=== PATIENT | female | born 1955 | race Caucasian/White ===

== ENCOUNTER 2019-02-14 14:54 | Observation (INO) ==
[2019-02-14] MEDS ORDERED: Aspirin 81 MG TAB.CHEW PO ONE (15:04)
[2019-02-14] MEDS ORDERED: Nitroglycerin 0.4 MG TAB.SUBL SL PRN ×2 (15:04→16:10)
[2019-02-14 15:20] LABS: Basophils % 0.4 %; Eosinophils # 0.2 K/mcL (0.0-0.6); Eosinophils % 2.3 %; Hematocrit 43.1 % (35.3-44.9); Hemoglobin 15.1 g/dL (11.5-15.4); Immature Granulocytes % 0.3 % (0-4); Lymphocytes # 2.3 K/mcL (0.6-4.6); Lymphocytes % 23.3 %; Mean Corpuscular Hemoglobin 33.9 pg (28.0-33.3); Mean Corpuscular Volume 96.9 fL (83.0-100.0); Mean Platelet Volume 10.5 fL (9.4-12.4); Monocytes # 0.7 K/mcL (0.0-1.3); Monocytes % 6.9 %; Neutrophils # 6.6 K/mcL (1.6-8.9); Platelet Count 278 K/mcL (140-400); Red Blood Count 4.45 M/mcL (3.82-4.97); Segmented Neutrophils % 66.8 %; White Blood Count 9.9 K/mcL (4.3-11.1)
[2019-02-14 15:24] LABS: Prothrombin Time 11.4 Seconds (9.4-12.1)
[2019-02-14 15:27] LABS: Activated Partial Thrombo Time 34.2 Seconds (26.0-36.0)
[2019-02-14] MEDS ORDERED: Ondansetron 4 MG/2 ML VIAL IVP ONE (15:43)
[2019-02-14 15:44] LABS: BUN/Creatinine Ratio 15 (6-26); Blood Urea Nitrogen 12 mg/dL (8-23); Calcium 9.8 mg/dL (8.6-10.3); Carbon Dioxide 24 mEq/L (23-29); Chloride 104 mEq/L (98-107); Glucose 97 mg/dL (70-105); Magnesium 1.9 mg/dL (1.6-2.6); Osmolality,Calculated 284 (280-300); Potassium 3.7 mEq/L (3.5-5.1); Sodium 137 mEq/L (136-145); Troponin I < 0.03 ng/mL (< 0.04); eGFR For African Americans > 60 (> 60); eGFR For Non-African Americans > 60 (> 60)
[2019-02-14] MEDS ORDERED: 0.9 % Sodium Chloride 500 ML IVC ONE (15:53)
[2019-02-14] MEDS ORDERED: Ondansetron 4 MG/2 ML VIAL IVP PRN (16:10)
[2019-02-14] MEDS ORDERED: *HR* Heparin 5,000 UNIT/ML VIAL SQ SCH (18:00)
[2019-02-14] MEDS ORDERED: SUMAtriptan succinate 25 MG TABLET PO ONE (21:43)
[2019-02-14] MEDS ORDERED: *HR* Promethazine 25 MG/ML VIAL IVP ONE (21:43)
[2019-02-14] MEDS ORDERED: Metoclopramide 10 MG/2 ML VIAL IVP ONE (21:54)
[2019-02-14] MEDS ORDERED: Ketorolac 15 MG/ML VIAL IVP ONE (21:54)
[2019-02-14] MEDS: Topiramate 25 MG TABLET PO SCH (22:20)
[2019-02-15 05:08] LABS: Basophils # 0.1 K/mcL (0.0-0.2); Basophils % 0.7 %; Eosinophils # 0.4 K/mcL (0.0-0.6); Eosinophils % 5.1 %; Hemoglobin 12.2 g/dL (11.5-15.4); Immature Granulocytes % 0.1 % (0-4); Lymphocytes # 3.1 K/mcL (0.6-4.6); Lymphocytes % 43.6 %; Mean Corpuscular Hemoglobin 33.3 pg (28.0-33.3); Mean Corpuscular Volume 101.1 fL (83.0-100.0); Mean Platelet Volume 11.2 fL (9.4-12.4); Monocytes # 0.6 K/mcL (0.0-1.3); Monocytes % 8.7 %; Platelet Count 218 K/mcL (140-400); Red Blood Count 3.66 M/mcL (3.82-4.97); Red Cell Distribution Width 12.7 % (11.5-14.5); Segmented Neutrophils % 41.8 %; White Blood Count 7.2 K/mcL (4.3-11.1)
[2019-02-15 05:29] LABS: Alanine Aminotransferase 6 Units/L (7-52); Albumin 3.5 g/dL (3.5-5.7); Albumin/Globulin Ratio 1.5 (1.1-2.2); Alkaline Phosphatase 51 Units/L (34-104); Aspartate Amino Transferase 11 Units/L (13-39); BUN/Creatinine Ratio 17 (6-26); Bilirubin,Total 0.5 mg/dL (0.3-1.0); Blood Urea Nitrogen 16 mg/dL (8-23); Carbon Dioxide 23 mEq/L (23-29); Chloride 107 mEq/L (98-107); Globulin 2.3 g/dL (2.4-3.5); Glucose 88 mg/dL (70-105); Osmolality,Calculated 287 (280-300); Potassium 3.7 mEq/L (3.5-5.1); Sodium 138 mEq/L (136-145); Total Protein 5.8 g/dL (6.4-8.9); eGFR For African Americans > 60 (> 60); eGFR For Non-African Americans 59 (> 60)
[2019-02-15] MEDS ORDERED: Regadenoson 0.4 MG/5 ML SYRINGE IVP ONE (06:13)
[2019-02-15] MEDS ORDERED: Levothyroxine 25 MCG TABLET PO SCH (06:30)
[2019-02-15] MEDS ORDERED: Aspirin 81 MG TAB.CHEW PO SCH (09:00)
[2019-02-15] MEDS: Topiramate 25 MG TABLET PO SCH (09:07)
[2019-02-15 11:34] VITALS: BP 107/65
== END 2019-02-15 15:03 | disposition home or self-care (01) ==
LOC: SUATTDRO → 3BNU 14:54 → EMEROOARM 14:54 → SUATTDRO 16:38 → 3BNU 17:30
PROVIDERS: ADMIT Family Medicine; ATTEND Family Medicine